=== PATIENT | male | born 1945 | race Caucasian/White ===

== ENCOUNTER 2020-02-08 20:16 | Inpatient (IN) | payer MEDICARE ==
[2020-02-08] MEDS ORDERED: SODIUM CHLORIDE 0.9% 1,000 ML IV STA (20:45)
--- NOTE | 2020-02-08 20:53 | ED ---
General Adult HPI - General Chief complaint: GI Bleed Stated complaint: GI Bleed Time Seen by Provider: 02/08/20 20:25 Source: patient, RN notes reviewed, old records reviewed Mode of arrival: EMS Limitations: no limitations - History of Present Illness Initial comments: Patient is a 74-year-old male with a history of dialysis hypertension who presents from transfer from [facility] in [place]. Patient presented to the emergency department with complaints of feeling weak and confused and unable to walk well within the past 1-2 weeks. Patient's hemoglobin was noted to be 7.7 at dialysis today which she did complete. Patient reports that he has noticed some bloody bowel movements for the past week. Patient has medical history of hypertension renal disease, confusion and dementia and previous liver disease as well as COPD. He is a smoker. - Related Data Allergies Allergy/AdvReac Type Severity Reaction Status Date / Time No Known Allergies Allergy Verified 02/08/20 23:21 Review of Systems ROS Statement: Those systems with pertinent positive or pertinent negative responses have been documented in the HPI. ROS Other: All systems not noted in ROS Statement are negative. Past Medical History Past Medical History: Dialysis, Hypertension, Renal Disease History of Any Multi-Drug Resistant Organisms: None Reported Additional Past Surgical History / Comment(s): Dialysis graft left arm, and central dialysis catheter Past Psychological History: No Psychological Hx Reported Smoking Status: Current every day smoker Past Alcohol Use History: None Reported Past Drug Use History: None Reported General Exam - General Exam Comments Initial Comments: This is a pleasant 74-year-old male. He is alert and oriented 3. Limitations: no limitations General appearance: alert, in no apparent distress Head exam: Present: atraumatic, normocephalic, normal inspection Eye exam: Present: normal appearance, PERRL, EOMI. Absent: scleral icterus, conjunctival injection, periorbital swelling ENT exam: Present: normal exam, mucous membranes moist, other (Dry oropharynx) Neck exam: Present: normal inspection. Absent: tenderness, meningismus, lymphadenopathy Respiratory exam: Present: normal lung sounds bilaterally, other (Patient has a pacemaker defibrillator). Absent: respiratory distress, wheezes, rales, rhonchi, stridor Cardiovascular Exam: Present: regular rate, normal rhythm, normal heart sounds. Absent: systolic murmur, diastolic murmur, rubs, gallop, clicks GI/Abdominal exam: Present: soft, normal bowel sounds. Absent: distended, tenderness, guarding, rebound, rigid Extremities exam: Present: normal inspection, full ROM, normal capillary refill. Absent: tenderness, pedal edema, joint swelling, calf tenderness Back exam: Present: normal inspection Neurological exam: Present: alert, oriented X3, CN II-XII intact Psychiatric exam: Present: normal affect, normal mood Skin exam: Present: warm, dry, intact, normal color. Absent: rash Course Vital Signs 02/08/20 02/08/20 02/08/20 20:24 22:38 23:05 Temperature 98.2 F Pulse Rate 73 74 75 Respiratory 18 18 18 Rate Blood Pressure 91/47 91/47 95/52 O2 Sat by Pulse 97 97 97 Oximetry Medical Decision Making - Medical Decision Making Patient is a 74-year-old male history of dialysis presents with general weakness, more severe over the past 2 weeks and reported dark stools. Patient's hemoglobin is 7.[address] [facility] was repeated in our ER. He was given Protonix already. He completed dialysis today and his lactic acid was in 4.1. Was started on gentle IV hydration. He does have dry oropharynx. Patient's hemoglobin at our facility is still 7.7. He did receive Protonix earlier. I discussed the case with . I then discussed the case with Cecelia Mayers NP who agrees to accept admission. - Lab Data Result diagrams: 02/08/20 22:13 02/08/20 22:13 Lab Results 02/08/20 02/08/20 02/08/20 Range/Units 20:55 20:55 22:13 WBC 8.0 (3.8-10.6) k/uL RBC 2.36 L (4.30-5.90) m/uL Hgb 7.7 L (13.0-17.5) gm/dL Hct 26.5 L (39.0-53.0) % MCV 112.2 H (80.0-100.0) fL MCH 32.7 (25.0-35.0) pg MCHC 29.2 L (31.0-37.0) g/dL RDW 18.1 H (11.5-15.5) % Plt Count 267 (150-450) k/uL MPV 6.9 Neutrophils % (Manual) 78 % Lymphocytes % (Manual) 13 % Monocytes % (Manual) 7 % Eosinophils % (Manual) 1 % Basophils % (Manual) 1 % Neutrophils # (Manual) 6.24 (1.3-7.7) k/uL Lymphocytes # (Manual) 1.04 (1.0-4.8) k/uL Monocytes # (Manual) 0.56 (0-1.0) k/uL Eosinophils # (Manual) 0.08 (0-0.7) k/uL Basophils # (Manual) 0.08 (0-0.2) k/uL Nucleated RBCs 0 (0-0) /100 WBC Manual Slide Review Performed Polychromasia Present Hypochromasia Marked Poikilocytosis Slight Anisocytosis Slight Macrocytosis Marked A Stomatocytes Present PT (9.0-12.0) sec INR (<1.2) APTT (22.0-30.0) sec Sodium (137-145) mmol/L Potassium (3.5-5.1) mmol/L Chloride (98-107) mmol/L Carbon Dioxide (22-30) mmol/L Anion Gap mmol/L BUN (9-20) mg/dL Creatinine (0.66-1.25) mg/dL Est GFR (CKD-EPI)AfAm (>60 ml/min/1.73 sqM) Est GFR (CKD-EPI)NonAf (>60 ml/min/1.73 sqM) Glucose (74-99) mg/dL Calcium (8.4-10.2) mg/dL Total Bilirubin (0.2-1.3) mg/dL AST (17-59) U/L ALT (4-49) U/L Alkaline Phosphatase (38-126) U/L Ammonia 40 H (<30) umol/L Total Protein (6.3-8.2) g/dL Albumin (3.5-5.0) g/dL Stool Occult Blood Positive (Negative) Blood Type Blood Type Confirm Blood Type Recheck Bld Type Recheck Status Antibody Screen Spec Expiration Date 02/08/20 02/08/20 02/08/20 Range/Units 22:13 22:13 22:13 WBC (3.8-10.6) k/uL RBC (4.30-5.90) m/uL Hgb (13.0-17.5) gm/dL Hct (39.0-53.0) % MCV (80.0-100.0) fL MCH (25.0-35.0) pg MCHC (31.0-37.0) g/dL RDW (11.5-15.5) % Plt Count (150-450) k/uL MPV Neutrophils % (Manual) % Lymphocytes % (Manual) % Monocytes % (Manual) % Eosinophils % (Manual) % Basophils % (Manual) % Neutrophils # (Manual) (1.3-7.7) k/uL Lymphocytes # (Manual) (1.0-4.8) k/uL Monocytes # (Manual) (0-1.0) k/uL Eosinophils # (Manual) (0-0.7) k/uL Basophils # (Manual) (0-0.2) k/uL Nucleated RBCs (0-0) /100 WBC Manual Slide Review Polychromasia Hypochromasia Poikilocytosis Anisocytosis Macrocytosis Stomatocytes PT 13.0 H (9.0-12.0) sec INR 1.3 H (<1.2) APTT 33.4 H (22.0-30.0) sec Sodium 131 L (137-145) mmol/L Potassium 3.3 L (3.5-5.1) mmol/L Chloride 94 L (98-107) mmol/L Carbon Dioxide 34 H (22-30) mmol/L Anion Gap 3 mmol/L BUN 13 (9-20) mg/dL Creatinine 2.12 H (0.66-1.25) mg/dL Est GFR (CKD-EPI)AfAm 35 (>60 ml/min/1.73 sqM) Est GFR (CKD-EPI)NonAf 30 (>60 ml/min/1.73 sqM) Glucose 82 (74-99) mg/dL Calcium 7.8 L (8.4-10.2) mg/dL Total Bilirubin 0.7 (0.2-1.3) mg/dL AST 66 H (17-59) U/L ALT 40 (4-49) U/L Alkaline Phosphatase 155 H (38-126) U/L Ammonia (<30) umol/L Total Protein 4.8 L (6.3-8.2) g/dL Albumin 2.2 L (3.5-5.0) g/dL Stool Occult Blood (Negative) Blood Type A Negative Blood Type Confirm Blood Type Recheck No Previous Record Bld Type Recheck Status CABO Indicated Antibody Screen NEGATIVE Spec Expiration Date 02/11/2020 - 231202/08/20 Range/Units 22:13 WBC (3.8-10.6) k/uL RBC (4.30-5.90) m/uL Hgb (13.0-17.5) gm/dL Hct (39.0-53.0) % MCV (80.0-100.0) fL MCH (25.0-35.0) pg MCHC (31.0-37.0) g/dL RDW (11.5-15.5) % Plt Count (150-450) k/uL MPV Neutrophils % (Manual) % Lymphocytes % (Manual) % Monocytes % (Manual) % Eosinophils % (Manual) % Basophils % (Manual) % Neutrophils # (Manual) (1.3-7.7) k/uL Lymphocytes # (Manual) (1.0-4.8) k/uL Monocytes # (Manual) (0-1.0) k/uL Eosinophils # (Manual) (0-0.7) k/uL Basophils # (Manual) (0-0.2) k/uL Nucleated RBCs (0-0) /100 WBC Manual Slide Review Polychromasia Hypochromasia Poikilocytosis Anisocytosis Macrocytosis Stomatocytes PT (9.0-12.0) sec INR (<1.2) APTT (22.0-30.0) sec Sodium (137-145) mmol/L Potassium (3.5-5.1) mmol/L Chloride (98-107) mmol/L Carbon Dioxide (22-30) mmol/L Anion Gap mmol/L BUN (9-20) mg/dL Creatinine (0.66-1.25) mg/dL Est GFR (CKD-EPI)AfAm (>60 ml/min/1.73 sqM) Est GFR (CKD-EPI)NonAf (>60 ml/min/1.73 sqM) Glucose (74-99) mg/dL Calcium (8.4-10.2) mg/dL Total Bilirubin (0.2-1.3) mg/dL AST (17-59) U/L ALT (4-49) U/L Alkaline Phosphatase (38-126) U/L Ammonia (<30) umol/L Total Protein (6.3-8.2) g/dL Albumin (3.5-5.0) g/dL Stool Occult Blood (Negative) Blood Type Blood Type Confirm A Negative Blood Type Recheck Bld Type Recheck Status Antibody Screen Spec Expiration Date Patient's labs from that original white blood cell count 7.7. RBC 2.26. Hemoglobin of 7.7. Platelets of 242. Ammonia 40. Glucose 113. Potassium 2.9 chloride 97. Lactic acid was 4.1. - Radiology Data Radiology results: report reviewed Patient chest x-rays negative for acute process. Disposition Clinical Impression: Hemodialysis patient, GI bleed, Weakness Disposition: ADMITTED IP TO THIS [facility] Condition: Stable Is patient prescribed a controlled substance at d/c from ED?: No Referrals: None,Stated [Primary Care Provider] - 1-2 days Time of Disposition: 23:36
[2020-02-08 22:39] LABS: Anisocytosis Slight; HCT 26.5 % (39.0-53.0); HGB 7.7 gm/dL (13.0-17.5); Hypochromasia Marked; MCH 32.7 pg (25.0-35.0); MCHC 29.2 g/dL (31.0-37.0); MCV 112.2 fL (80.0-100.0); Macrocytosis Marked; Mean Platelet Volume 6.9; Platelet Count 267 k/uL (150-450); Poikilocytosis Slight; RBC 2.36 m/uL (4.30-5.90); RDW 18.1 % (11.5-15.5)
[2020-02-08 22:48] LABS: Basophils # (M) 0.08 k/uL (0-0.2); Eosinophils # (M) 0.08 k/uL (0-0.7); Lymphocytes # (M) 1.04 k/uL (1.0-4.8); Monocytes # (M) 0.56 k/uL (0-1.0); Neutrophils # (M) 6.24 k/uL (1.3-7.7); Neutrophils % (M) 78 %; Nucleated Red Blood Cells 0 /100 WBC (0-0); Polychromasia Present; Stomatocytes Present; Total Cells Counted 100
[2020-02-08 22:50] LABS: Albumin 2.2 g/dL (3.5-5.0); Calcium 7.8 mg/dL (8.4-10.2); INR 1.3 (<1.2); Partial Thromboplastin Time 33.4 sec (22.0-30.0); Potassium 3.3 mmol/L (3.5-5.1); Total Bilirubin 0.7 mg/dL (0.2-1.3); Total Protein 4.8 g/dL (6.3-8.2)
[2020-02-08] MEDS ORDERED: KETOROLAC 15 MG/ML 1 ML VIAL IVP PRN (23:38)
[2020-02-08] MEDS ORDERED: ACETAMINOPHEN TAB 325 MG TAB PO PRN (23:38)
[2020-02-08] MEDS ORDERED: IBUPROFEN 400 MG TAB PO PRN (23:38)
[2020-02-08] MEDS ORDERED: NALOXONE 0.4 MG/ML 1 ML VIAL IV PRN (23:38)
[2020-02-08] MEDS ORDERED: oxyCODONE-APAP 5-325MG 1 EACH TAB PO PRN (23:38)
[2020-02-08] MEDS ORDERED: ONDANSETRON 4 MG/2 ML VIAL IVP PRN (23:38)
[2020-02-09] MEDS: SODIUM CHLORIDE 0.9% 1,000 ML IV SCH ×3 (02:54→23:46)
[2020-02-09 07:40] LABS: Anisocytosis Slight; HGB 8.6 gm/dL (13.0-17.5); Hypochromasia Marked; MCH 33.8 pg (25.0-35.0); Macrocytosis Marked; Mean Platelet Volume 7.8; Platelet Count 168 k/uL (150-450); Poikilocytosis Moderate; RBC 2.56 m/uL (4.30-5.90); RDW 19.2 % (11.5-15.5); WBC 9.2 k/uL (3.8-10.6)
[2020-02-09 07:43] LABS: MCV 105.6 fL (80.0-100.0)
[2020-02-09] MEDS: PANTOPRAZOLE 40 MG/10 ML VIAL IV SCH (09:40)
--- NOTE | 2020-02-09 14:04 | CONS ---
CONSULTATION DATE OF SERVICE: February 09, 2020. REASON FOR CONSULTATION: Anemia. HISTORY OF PRESENT ILLNESS: The patient is a 74-year-old white male who was transferred from [place] because of anemia. Apparently, he was undergoing dialysis and he felt extremely weak, tired, unable to walk and he had labs done. Hemoglobin was 7.7, and hence he was transferred to [facility] for further evaluation. The patient denies any abdominal pain. He reports no nausea, vomiting. No rectal bleeding or melena. In fact, he had a brown bowel movement late last night. He received one unit of PRBC transfusion yesterday. The patient does not recall if he had an EGD colonoscopy in the past. He however does remember that he never had any blood transfusions before. He has been on dialysis for the last 3 years duration. PAST MEDICAL HISTORY: Significant for hypertension, end-stage renal disease on dialysis for the last 3 years. PAST SURGICAL HISTORY: Dialysis catheter placement. MEDICATIONS: Medications at home are not recorded. ALLERGIES: None. SOCIAL HISTORY: Chronic smoker. No alcohol use. FAMILY HISTORY: Unremarkable. REVIEW OF SYSTEMS: CARDIOPULMONARY: Denies any chest pain or shortness of breath. : No dysuria or hematuria. MUSCULOSKELETAL unremarkable. Skin unremarkable. Endocrine unremarkable. PSYCHIATRIC: Unremarkable. NEUROLOGY: Mild dementia. ENT: Vision unremarkable. Nephrology as mentioned above. Hematology: Severe anemia. Oncology unremarkable. GI as mentioned above. PHYSICAL EXAMINATION: He appears comfortable. VITAL SIGNS: Stable. Blood pressure 106/64, pulse rate 70, temperature 97.9. HEENT examination unremarkable. Conjunctivae pink. Sclerae anicteric. Oral cavity no lesions. Neck no JVD or lymph node enlargement. Chest was clear to auscultation. HEART: Regular rate and rhythm. ABDOMEN: Soft. Bowel sounds are positive. No organomegaly. Extremities: No pedal edema. Neuro: He is alert and oriented x3. No focal deficits. LABS: From yesterday WBC 8, hemoglobin 7.7, platelets 267. BUN is 39, creatinine 2.12, sodium 131, potassium 3.3, chloride 94, CO2 34. INR is 1.3. AST and ALT are 66 and 40 respectively. T-Bilirubin normal, alkaline phosphatase 155. Stool Hemoccult positive. IMPRESSION: 1. Macrocytic anemia, but clinically no evidence of active GI bleed. He was noted to have Hemoccult-positive stool, anemia, most likely multifactorial in etiology. He may have a component of occult GI blood loss, but most likely related to chronic kidney disease/anemia of chronic disease. 2. Hemoccult-positive stool. 3. Mild coagulopathy. 4. End-stage renal disease on hemodialysis. RECOMMENDATIONS: 1. Obtain iron studies. 2. Advance to a renal diet. 3. No plans on any endoscopic intervention at the present time since he has no active bleeding. 4. Repeat labs in the morning. 5. We will follow with you closely. Thank you for this consultation. MMODL / IJN: [id number] /
[2020-02-09] MEDS ORDERED: hydrOXYzine pamoate 25 MG CAP PO PRN (14:09)
[2020-02-09] MEDS ORDERED: Buprenorphine Hcl [Belbuca] SUBLINGUAL SCH (14:15)
--- NOTE | 2020-02-09 15:07 | P.NPCON ---
History of Present Illness - Reason for Consult end stage renal disease - History of Present Illness Reason for consultation: ESRD. History of present illness: Patient is a 74 y/o M seen in renal consultation for ESRD. He is maintained on HD MWF in [place], [place]. Patient felt weak last couple of days and apparently had rectal bleeding as well. Patient denies any melena or hematochezia. Hgb was 7.7 and he received 1 uints pRBC; hgb improved. No chest pain or shortness or breath. No fever or chills. No nausea, vomiting or diarrhea. Feels hungry. No abdominal pain. Has been evaluated by GI. No active complaints at this time. Vital signs are stable. General: The patient appeared well nourished and normally developed. HEENT: Head exam is unremarkable. Lungs: Breath sounds decreased. HEART: Rate and Rhythm are regular. ABDOMEN: Soft, no distention noted. EXTREMITITES: Trace edema. Past Medical History Past Medical History: Dialysis, Hypertension, Renal Disease History of Any Multi-Drug Resistant Organisms: None Reported Additional Past Surgical History / Comment(s): Dialysis graft left arm, and central dialysis catheter Past Psychological History: No Psychological Hx Reported Smoking Status: Current every day smoker Past Alcohol Use History: None Reported Additional Past Alcohol Use History / Comment(s): Been smoking for 50 years, smoke 1 to 2 Past Drug Use History: None Reported Medications and Allergies Home Medications Medication Instructions Recorded Confirmed Type Apixaban [Eliquis] 5 mg PO BID 02/09/20 02/09/20 History Buprenorphine HCl [Belbuca] 150 mcg BUCCAL Q12H 02/09/20 02/09/20 History Furosemide [Lasix] 80 mg PO DAILY 02/09/20 02/09/20 History Magnesium Oxide [Mag-Ox] 400 mg PO DAILY 02/09/20 02/09/20 History Tamsulosin [Flomax] 0.4 mg PO DAILY 02/09/20 02/09/20 History fentaNYL [Duragesic 37.5 MCG/HR] 1 patch TRANSDERM Q72H 02/09/20 02/09/20 History hydrOXYzine pamoate [hydrOXYzine 25 mg PO QID PRN 02/09/20 02/09/20 History PAMOATE] traMADol HCL 50 mg PO TID 02/09/20 02/09/20 History traMADol HCL 100 mg PO HS 02/09/20 02/09/20 History traZODone HCL 100 mg PO HS 02/09/20 02/09/20 History Allergies Allergy/AdvReac Type Severity Reaction Status Date / Time No Known Allergies Allergy Verified 02/08/20 23:21 Physical Exam Vitals: Vital Signs Temp Pulse Pulse Resp BP BP Pulse Ox 02/09/20 14:53 98.5 F 65 16 106/66 94 L 02/09/20 07:00 97.9 F 70 16 106/64 94 L 02/09/20 05:45 97.8 F 71 16 102/53 94 L 02/09/20 03:57 98.1 F 69 20 99/61 95 02/09/20 03:21 60 20 99/60 95 02/09/20 02:04 98 F 69 20 101/53 95 02/09/20 01:34 98 F 67 20 106/52 95 02/09/20 01:24 97.7 F 61 20 93/57 95 02/09/20 01:00 67 18 103/48 99 02/09/20 00:30 67 16 100/47 97 02/09/20 00:00 61 18 87/41 97 02/08/20 23:05 75 18 95/52 97 02/08/20 22:38 74 18 91/47 97 02/08/20 20:24 98.2 F 73 18 91/47 97 Intake and Output 02/08/20 02/09/20 02/09/20 22:59 06:59 14:59 Intake Total 310 Balance 310 Intake: Blood Product 310 Rc As-1 Unit 310 [id number] Other: Voiding Method Diaper # Voids 2 # Bowel Movements 2 Weight 72.575 kg 72.575 kg Results - Lab Results Most recent lab results Calcium 7.8 mg/dL (8.4-10.2) L 02/08/20 22:13 02/09/20 06:35 02/08/20 22:13 Assessment and Plan Plan: Assessment: 1. ESRD on HD MWF. 2. Anemia secondary to GIB s/p pRBC. No active bleeding noted. GI following. 3. Hypokalemia secondary to diuresis. 4. Hyponatremia secondary to CKD. Plan: HD tomorrow due to holiday schedule. Check potassium today. Follow-up iron studies. Add Aranesp. Thank you for the consultation. I will continue to follow the patient with you during his hospital stay.
[2020-02-09] MEDS ORDERED: DARBEPOETIN ALFA 40 MCG/0.4 ML SYRINGE SQ SCH (15:30)
--- NOTE | 2020-02-09 15:50 | P.HPIM ---
History of Present Illness 74-year-old male end-stage renal disease was admitted for possibility of GI bleed although patient denied any blood in the stools dark stools hematemesis hematochezia or hematuria. Patient hemoglobin is low patient has elevated MCV. Patient was a evaluated by gastroenterology not on any any further intervention. Patient has history of end-stage renal disease. Patient is on Eliquis 5 mg twice a day with end-stage renal disease his higher dose patient actually presented here with complaints of generalized weakness and tiredness. This may be related related to over the opiates he was using which is fentanyl and Buprinorphone along with couple anticholinergic medications. Review of Systems REVIEW OF SYSTEMS: CONSTITUTIONAL: No fever, HEENT: No recent visual problems or hearing problems. Denied any sore throat. CARDIOVASCULAR: No chest pain, orthopnea, PND, no palpitations, no syncope. PULMONARY: No shortness of breath, no cough, no hemoptysis. GASTROINTESTINAL: No diarrhea, no nausea, no vomiting, no abdominal pain. NEUROLOGICAL: No headaches, no weakness, no numbness. HEMATOLOGICAL: Denies any bleeding or petechiae. GENITOURINARY: Denies any burning micturition, frequency, or urgency. MUSCULOSKELETAL/RHEUMATOLOGICAL: Denies any joint pain, swelling, or any muscle pain. ENDOCRINE: Denies any polyuria or polydipsia. The rest of the 14-point review of systems is negative. Past Medical History Past Medical History: Dialysis, Hypertension, Renal Disease History of Any Multi-Drug Resistant Organisms: None Reported Additional Past Surgical History / Comment(s): Dialysis graft left arm, and central dialysis catheter Past Psychological History: No Psychological Hx Reported Smoking Status: Current every day smoker Past Alcohol Use History: None Reported Additional Past Alcohol Use History / Comment(s): Been smoking for 50 years, smoke 1 to 2 Past Drug Use History: None Reported Medications and Allergies Home Medications Medication Instructions Recorded Confirmed Type Apixaban [Eliquis] 5 mg PO BID 02/09/20 02/09/20 History Buprenorphine HCl [Belbuca] 150 mcg BUCCAL Q12H 02/09/20 02/09/20 History Furosemide [Lasix] 80 mg PO DAILY 02/09/20 02/09/20 History Magnesium Oxide [Mag-Ox] 400 mg PO DAILY 02/09/20 02/09/20 History Tamsulosin [Flomax] 0.4 mg PO DAILY 02/09/20 02/09/20 History fentaNYL [Duragesic 37.5 MCG/HR] 1 patch TRANSDERM Q72H 02/09/20 02/09/20 History hydrOXYzine pamoate [hydrOXYzine 25 mg PO QID PRN 02/09/20 02/09/20 History PAMOATE] traMADol HCL 50 mg PO TID 02/09/20 02/09/20 History traMADol HCL 100 mg PO HS 02/09/20 02/09/20 History traZODone HCL 100 mg PO HS 02/09/20 02/09/20 History Allergies Allergy/AdvReac Type Severity Reaction Status Date / Time No Known Allergies Allergy Verified 02/08/20 23:21 Physical Exam Vitals: Vital Signs Temp Pulse Pulse Resp BP BP Pulse Ox 02/09/20 14:53 98.5 F 65 16 106/66 94 L 02/09/20 07:00 97.9 F 70 16 106/64 94 L 02/09/20 05:45 97.8 F 71 16 102/53 94 L 02/09/20 03:57 98.1 F 69 20 99/61 95 02/09/20 03:21 60 20 99/60 95 02/09/20 02:04 98 F 69 20 101/53 95 02/09/20 01:34 98 F 67 20 106/52 95 02/09/20 01:24 97.7 F 61 20 93/57 95 02/09/20 01:00 67 18 103/48 99 02/09/20 00:30 67 16 100/47 97 02/09/20 00:00 61 18 87/41 97 02/08/20 23:05 75 18 95/52 97 02/08/20 22:38 74 18 91/47 97 02/08/20 20:24 98.2 F 73 18 91/47 97 Intake and Output 02/09/20 02/09/20 02/09/20 06:59 14:59 22:59 Intake Total 310 Balance 310 Intake: Blood Product 310 Rc As-1 Unit 310 [id number] Other: Voiding Method Diaper # Voids 2 # Bowel Movements 2 Weight 72.575 kg PHYSICAL EXAMINATION: GENERAL: The patient is alert and oriented x3, not in any acute distress. Well developed, well nourished. HEENT: Pupils are round and equally reacting to light. EOMI. No scleral icterus. No conjunctival pallor. Normocephalic, atraumatic. No pharyngeal erythema. No thyromegaly. CARDIOVASCULAR: S1 and S2 present. No murmurs, rubs, or gallops. PULMONARY: Mild bilateral crackles were heard. ABDOMEN: Soft, nontender, nondistended, normoactive bowel sounds. No palpable organomegaly. MUSCULOSKELETAL: No joint swelling or deformity. EXTREMITIES: No cyanosis, clubbing, or pedal edema. NEUROLOGICAL: Gross neurological examination did not reveal any focal deficits. SKIN: No rashes. Results CBC & Chem 7: 02/09/20 06:35 02/08/20 22:13 Labs: Abnormal Lab Results - Last 24 Hours (Table) 02/08/20 02/08/20 02/08/20 Range/Units 12:00 20:55 22:13 RBC 2.36 L (4.30-5.90) m/uL Hgb 7.7 L (13.0-17.5) gm/dL Hct 26.5 L (39.0-53.0) % MCV 112.2 H (80.0-100.0) fL MCHC 29.2 L (31.0-37.0) g/dL RDW 18.1 H (11.5-15.5) % Macrocytosis Marked A PT (9.0-12.0) sec INR (<1.2) APTT (22.0-30.0) sec Sodium (137-145) mmol/L Potassium (3.5-5.1) mmol/L Chloride (98-107) mmol/L Carbon Dioxide (22-30) mmol/L Creatinine (0.66-1.25) mg/dL Calcium (8.4-10.2) mg/dL AST (17-59) U/L Alkaline Phosphatase (38-126) U/L Ammonia 40 H (<30) umol/L Total Protein (6.3-8.2) g/dL Albumin (3.5-5.0) g/dL Vitamin D 25-Hydroxy 19.4 L (30.0-100.0) ng/mL Crossmatch 02/08/20 02/08/20 02/08/20 Range/Units 22:13 22:13 22:13 RBC (4.30-5.90) m/uL Hgb (13.0-17.5) gm/dL Hct (39.0-53.0) % MCV (80.0-100.0) fL MCHC (31.0-37.0) g/dL RDW (11.5-15.5) % Macrocytosis PT 13.0 H (9.0-12.0) sec INR 1.3 H (<1.2) APTT 33.4 H (22.0-30.0) sec Sodium 131 L (137-145) mmol/L Potassium 3.3 L (3.5-5.1) mmol/L Chloride 94 L (98-107) mmol/L Carbon Dioxide 34 H (22-30) mmol/L Creatinine 2.12 H (0.66-1.25) mg/dL Calcium 7.8 L (8.4-10.2) mg/dL AST 66 H (17-59) U/L Alkaline Phosphatase 155 H (38-126) U/L Ammonia (<30) umol/L Total Protein 4.8 L (6.3-8.2) g/dL Albumin 2.2 L (3.5-5.0) g/dL Vitamin D 25-Hydroxy (30.0-100.0) ng/mL Crossmatch See Detail 02/09/20 Range/Units 06:35 RBC 2.56 L (4.30-5.90) m/uL Hgb 8.6 L (13.0-17.5) gm/dL Hct 27.0 L (39.0-53.0) % MCV 105.6 H D (80.0-100.0) fL MCHC (31.0-37.0) g/dL RDW 19.2 H (11.5-15.5) % Macrocytosis Marked A PT (9.0-12.0) sec INR (<1.2) APTT (22.0-30.0) sec Sodium (137-145) mmol/L Potassium (3.5-5.1) mmol/L Chloride (98-107) mmol/L Carbon Dioxide (22-30) mmol/L Creatinine (0.66-1.25) mg/dL Calcium (8.4-10.2) mg/dL AST (17-59) U/L Alkaline Phosphatase (38-126) U/L Ammonia (<30) umol/L Total Protein (6.3-8.2) g/dL Albumin (3.5-5.0) g/dL Vitamin D 25-Hydroxy (30.0-100.0) ng/mL Crossmatch Thrombosis Risk Factor Assmnt - Choose All That Apply Any of the Below Risk Factors Present?: Yes Each Risk Factor Represents 2 Points: Age 61-74 years Thrombosis Risk Factor Assessment Total Risk Factor Score: 2 Thrombosis Risk Factor Assessment Level: Low Risk Assessment and Plan Plan: -Anemia: Probably macrocytic anemia as well as anemia of chronic kidney disease. We'll obtain B12 and folate levels there is no evidence of acute GI bleed -Generalized tiredness and weakness, fatigue probably secondary to excess opiate use which will cut it down. -Patient is an anticoagulation most probably because of atrial fibrillation although his history is not clear we'll cut down the dose of Eliquis to 2.5 mg twice a day as patient is a dialysis patient. -Continued nicotine use: Counseling was provided -Hypertension -Hyponatremia and hypokalemia due to renal disease expected to improve with dialysis. -End stage renal disease patient will undergo hemodialysis tomorrow.
[2020-02-09] MEDS: traMADol 50 MG TAB PO SCH ×2 (18:28→23:55)
[2020-02-09] MEDS: APIXABAN 2.5 MG TABLET PO SCH (20:06)
[2020-02-09] MEDS ORDERED: APIXABAN 5 MG TAB PO SCH (21:00)
[2020-02-09] MEDS ORDERED: traZODone HCL 50 MG TAB PO SCH (21:00)
[2020-02-10] MEDS: SODIUM CHLORIDE 0.9% 1,000 ML IV SCH (06:42)
--- NOTE | 2020-02-10 07:21 | XR ---
EXAMINATION TYPE: XR chest 1V DATE OF EXAM: 02/10/2020 COMPARISON: 02/08/2000 HISTORY: Shortness of breath TECHNIQUE: Single frontal view of the chest is obtained. FINDINGS: Surgical change overlying the cervical spine. Heart size normal. Basilar subsegmental santillan ges are seen. Cardiac device and right-sided dialysis catheter noted with no pneumothorax. No pleural effusion. No overt failure. IMPRESSION: 1. No overt failure. Left basilar atelectasis versus early joint.
[2020-02-10] MEDS: APIXABAN 2.5 MG TABLET PO SCH (07:22)
[2020-02-10] MEDS: traMADol 50 MG TAB PO SCH (07:23)
[2020-02-10] MEDS: PANTOPRAZOLE 40 MG/10 ML VIAL IV SCH (07:23)
[2020-02-10] MEDS ORDERED: MAGNESIUM OXIDE 400 MG TAB PO SCH (09:00)
[2020-02-10] MEDS ORDERED: TAMSULOSIN 0.4 MG CAP.ER.24H PO SCH (09:00)
[2020-02-10] MEDS ORDERED: FUROSEMIDE 80 MG TAB PO SCH (09:00)
[2020-02-10] MEDS ORDERED: MIDODRINE 5 MG TAB PO PRN (09:36)
[2020-02-10 09:56] LABS: Ferritin 264.7 ng/mL (22.0-322.0)
[2020-02-10 10:06] LABS: % Iron Saturation 22.46 (15.00-50.00); Folate, Serum 11.2 ng/mL
--- NOTE | 2020-02-10 10:52 | PN ---
PROGRESS NOTE DATE OF SERVICE: 02/10/2020 Patient is a 74-year-old white male admitted to the hospital with symptomatic anemia and Hemoccult-positive stool. The patient has history of end-stage renal disease on hemodialysis. He has been on Eliquis on outpatient basis. He is doing well. He is just starting to have dialysis this morning. He reports no abdominal pain. No nausea, no vomiting. No fever, chills, or night sweats. PHYSICAL EXAMINATION: Appears comfortable. VITAL SIGNS: Blood pressure 117/67, pulse rate 68, temperature 98.1. HEENT: Examination unremarkable. Conjunctivae pink. Sclerae anicteric. Oral cavity no lesions. NECK: No JVD or lymph node enlargement. CHEST: Clear to auscultation. HEART: Regular rate and rhythm. ABDOMEN: Soft. Bowel sounds are positive. No organomegaly. EXTREMITIES: No pedal edema. NEURO: He is alert and oriented x3. No focal deficits. LABS: WBC 9.2, hemoglobin 8.6, platelets 168. Iron studies have been requested and results are not available yet. IMPRESSION: 1. Macrocytic anemia, which appears to be multifactorial. He was noted to have Hemoccult-positive stool but clinically no evidence of active bleeding. The patient is a poor historian. Previous endoscopies according to him have been done in [facility]. No records available at the time of this dictation. 2. End-stage renal disease on hemodialysis. 3. Atrial fibrillation on Eliquis. RECOMMENDATIONS: 1. Await iron studies. 2. Since there is no active bleeding, no plans on any endoscopic intervention at the present time. He was advised to follow up with his physicians at [facility] for further management of his anemia and need for endoscopies can be assessed based on his previous workup. The plan was discussed with the patient. Thank you for this consultation. MMODL / IJN: [id number] /
--- NOTE | 2020-02-10 13:02 | P.DS ---
Providers Date of admission: 02/09/20 00:03 Attending physician: Harshad Nj Consults: 02/08/20 23:42 Consult Physician Stat Consulting Provider: Lilliana Rendon Consult Reason/Comments: GI bleed Do you want consulting provider notified?: Yes, Notify in am 02/09/20 11:18 Consult Physician Routine Consulting Provider: Be Gibbs Consult Reason/Comments: HD patient Do you want consulting provider notified?: Already Contacted Primary care physician: Stated None Hospital Course: 74-year-old male end-stage renal disease was admitted for possibility of GI bleed although patient denied any blood in the stools dark stools hematemesis hematochezia or hematuria. Patient hemoglobin is low patient has elevated MCV. Patient was a evaluated by gastroenterology not on any any further intervention. Patient has history of end-stage renal disease. Patient is on Eliquis 5 mg twice a day with end-stage renal disease his higher dose patient actually presented here with complaints of generalized weakness and tiredness. This may be related related to over the opiates he was using which is fentanyl and Buprinorphone along with couple anticholinergic medications. 02/10/2020 Patient is undergoing hemodialysis after which patient will be discharged no evidence of acute GI bleed at this time further workup for anemia should be done as an outpatient patient B12 and folate levels are not low. Patient's Eliquis dose will be decreased to 2.5 mg twice a day, discontinue Colstrip patch. Patient didn't have a bowel movement since admission. PHYSICAL EXAMINATION: GENERAL: The patient is alert and oriented x3, not in any acute distress. Well developed, well nourished. HEENT: Pupils are round and equally reacting to light. EOMI. No scleral icterus. No conjunctival pallor. Normocephalic, atraumatic. No pharyngeal erythema. No thyromegaly. CARDIOVASCULAR: S1 and S2 present. No murmurs, rubs, or gallops. PULMONARY: Mild bilateral crackles were heard. ABDOMEN: Soft, nontender, nondistended, normoactive bowel sounds. No palpable organomegaly. MUSCULOSKELETAL: No joint swelling or deformity. EXTREMITIES: No cyanosis, clubbing, or pedal edema. NEUROLOGICAL: Gross neurological examination did not reveal any focal deficits. SKIN: No rashes. Assessment and Plan Plan: -Anemia: anemia of chronic kidney disease. B12 and folate levels are within normal limits further workup as an outpatient probably anemia of chronic kidney disease -Generalized tiredness and weakness, fatigue probably secondary to excess opiate use . -Patient is an anticoagulation most probably because of atrial fibrillation , Eliquis will be switched to 2.5 mg. -Continued nicotine use: Counseling was provided -Hypertension -Hyponatremia and hypokalemia due to renal disease expected to improve with dialysis. -End stage renal disease hemodialysis today Patient Condition at Discharge: Stable Plan - Discharge Summary Discharge Rx Participant: No New Discharge Prescriptions: New Apixaban [Eliquis] 2.5 mg PO BID tablet Omeprazole [PriLOSEC] 40 mg PO AC-BRKFST #20 capsule. Continue traZODone HCL 100 mg PO HS traMADol HCL 50 mg PO TID traMADol HCL 100 mg PO HS Magnesium Oxide [Mag-Ox] 400 mg PO DAILY Buprenorphine HCl [Belbuca] 150 mcg BUCCAL Q12H Tamsulosin [Flomax] 0.4 mg PO DAILY Furosemide [Lasix] 80 mg PO DAILY Discontinued hydrOXYzine pamoate [hydrOXYzine PAMOATE] 25 mg PO QID PRN PRN Reason: Anxiety fentaNYL [Duragesic 37.5 MCG/HR] 1 patch TRANSDERM Q72H Apixaban [Eliquis] 5 mg PO BID Discharge Medication List Buprenorphine HCl [Belbuca] 150 mcg BUCCAL Q12H 02/09/20 [History] Furosemide [Lasix] 80 mg PO DAILY 02/09/20 [History] Magnesium Oxide [Mag-Ox] 400 mg PO DAILY 02/09/20 [History] Tamsulosin [Flomax] 0.4 mg PO DAILY 02/09/20 [History] traMADol HCL 50 mg PO TID 02/09/20 [History] traMADol HCL 100 mg PO HS 02/09/20 [History] traZODone HCL 100 mg PO HS 02/09/20 [History] Apixaban [Eliquis] 2.5 mg PO BID tablet 02/10/20 [Rx] Omeprazole [PriLOSEC] 40 mg PO AC-BRKFST #20 capsule. 02/10/20 [Rx] Follow up Appointment(s)/Referral(s): Cecelia Buck [facility] [REFERRING] - 3 Days [facility] , [REFERRING] - Discharge Disposition: HOME SELF-CARE
--- NOTE | 2020-02-10 13:09 | P.PN ---
Subjective Patient is seen in follow-up for end-stage liver disease. He is maintained on hemodialysis on Tuesday schedule. Currently seen while undergoing hemodialysis due to holiday schedule. No chest pain or shortness of breath. No melena or hematochezia. No other signs of active bleeding. Wants to go home. Vital signs are stable. General: The patient appeared well nourished and normally developed. HEENT: Head exam is unremarkable. Neck is without jugular venous distension. LUNGS: Breath sounds decreased. HEART: Rate and Rhythm are regular. ABDOMEN: Soft, nontender. EXTREMITITES: No edema. Objective - Vital Signs Vital signs: Vital Signs Temp 98.1 F 02/10/20 06:12 Pulse 68 02/10/20 06:12 Resp 16 02/10/20 06:12 BP 117/67 02/10/20 06:12 Pulse Ox 91 L 02/10/20 06:12 Intake & Output 02/09/20 02/10/20 02/10/20 18:59 06:59 18:59 Intake Total 100 Balance 100 Intake: Intake, IV Titration 100 Amount Sodium Chloride 0.9% 1, 100 000 ml @ 100 mls/hr IV . Q10H [facility] Rx#:[id number] Other: Voiding Method Diaper # Voids 1 # Bowel Movements 2 1 - Labs CBC & Chem 7: 02/09/20 06:35 02/09/20 15:12 Labs: Abnormal Lab Results - Last 24 Hours (Table) 02/10/20 Range/Units 06:24 Iron 42 L (65-175) ug/dL TIBC 187 L (228-460) ug/dL Vitamin B12 1568.0 H (200.0-944.0) pg/mL Assessment and Plan Plan: Assessment: 1. ESRD on HD MWF. 2. Anemia secondary to GIB s/p pRBC. No active bleeding noted. GI following. Maintained on Aranesp. 3. Hypokalemia secondary to diuresis. 4. Hyponatremia secondary to CKD. Plan: Currently seen while undergoing hemodialysis. Potential discharge after dialysis today.
[2020-02-10 16:02] VITALS: BP 152/64; PULSE 67; RESP 20; TEMP 97.9
== END 2020-02-10 14:04 | disposition home or self-care (01) | DRG 682 ==
LOC: EC 20:16 → 4SSUR 02-09 00:03
PROVIDERS: ADMIT Hospitalist; ATTEND Hospitalist
PROC: 30233N1 Transfusion of Nonautologous Red Blood Cells into Peripheral Vein, Percutaneous Approach (ICD-10-PCS; principal; 2020-02-09)
PROC: 5A1D70Z Performance of Urinary Filtration, Intermittent, Less than 6 Hours Per Day (ICD-10-PCS; 2020-02-09)
DX: I12.0 Hypertensive chronic kidney disease with stage 5 chronic kidney disease or end stage renal disease (principal); N18.6 End stage renal disease; D68.9 Coagulation defect, unspecified; E87.1 Hypo-osmolality and hyponatremia; K92.2 Gastrointestinal hemorrhage, unspecified; D63.1 Anemia in chronic kidney disease; F03.90 Unspecified dementia, unspecified severity, without behavioral disturbance, psychotic disturbance, mood disturbance, and anxiety; I48.91 Unspecified atrial fibrillation; J44.9 Chronic obstructive pulmonary disease, unspecified; Z99.2 Dependence on renal dialysis; D53.9 Nutritional anemia, unspecified; E87.6 Hypokalemia; F17.200 Nicotine dependence, unspecified, uncomplicated; T50.2X5A Adverse effect of carbonic-anhydrase inhibitors, benzothiadiazides and other diuretics, initial encounter; Z79.01 Long term (current) use of anticoagulants; Z79.899 Other long term (current) drug therapy; Z79.891 Long term (current) use of opiate analgesic; Z71.6 Tobacco abuse counseling
CPT/HCPCS: 36415; 36430; 71045; 80053; 82140; 82272; 82306; 82607; 82728; 82746; 82747; 83540; 83550; 84132; 85025; 85027; 85610; 85730; 86850; 86900; 86901; 86920; 90935; 96360; 96361; 99285